=== PATIENT | female | born 1995 | race Caucasian/White ===

== ENCOUNTER 2019-11-11 15:39 | Emergency (ER) | payer OTHER, SELFPAY ==
[2019-11-11 15:47] VITALS: BP 127/64; PULSE 94; RESP 20; TEMP 37.2; O2SAT 99
--- NOTE | 2019-11-11 15:59 | ED.GENADULT ---
HPI - General Adult General Chief complaint: Nausea/Vomiting/Diarrhea Stated complaint: diarrhea Time Seen by Provider: 11/11/19 15:59 Source: patient Mode of arrival: ambulatory Limitations: no limitations History of Present Illness HPI narrative: 24-year-old female patient presents to the [facility] with complaints of diarrhea that started this morning. Patient states she has not had any fevers, vomiting or nausea. Patient denies or breast-feeding. Patient states that she did take some ibuprofen for symptoms today. Denies any abdominal pain. Patient states that she did call off from work today and needs a work note which is why she is here. Related Data Home Medications Medication Instructions Recorded Confirmed No Home Medications 11/11/19 11/11/19 Allergies Allergy/AdvReac Type Severity Reaction Status Date / Time No Known Allergies Allergy Verified 11/11/19 15:53 Review of Systems Review of Systems: Narrative: CONSTITUTIONAL: Denies fever, chills, or sweats. EYES: Denies visual changes, redness, or discharge. ENT: Denies rhinorrhea, congestion, sore throat, or otalgia. CARDIOVASCULAR: Denies chest pain, palpitations, or edema. RESPIRATORY: Denies cough or dyspnea. GASTROINTESTINAL: Denies abdominal pain, nausea, vomiting, positive diarrhea. GENITOURINARY: Denies dysuria or hematuria. SKIN: Denies rash or itching. MUSCULOSKELETAL: Denies back pain, joint pain, or myalgia. NEUROLOGIC: Denies headache, numbness, or weakness. PSYCHIATRIC: Denies anxiety or depression. PMFSH Past Medical History Medical History Bipolar 1 disorder Depression Social History Social History Smoking status: Never smoker Alcohol intake: current Substance use type: marijuana Comments At the time of my signature I agree with nursing past medical history, surgical, social, and family history. There is no relevant family history pertinent to the presenting complaint. Exam Narrative: Exam Narrative: GENERAL: Well-appearing, well-nourished, and in no acute distress. HEAD: Normocephalic, atraumatic. EYES: PERRLA and EOMI. ENT: Nares clear, no rhinorrhea or epistaxis. Mucous membranes moist. NECK: Supple. No lymphadenopathy CHEST: Clear to auscultation. No respiratory distress. HEART: Regular rate and rhythm. No murmur heard. Normal peripheral pulses. ABDOMEN: Soft, flat, nondistended. No guarding, rebound tenderness, or rigid. No pulsatilla masses. Hyperactive bowel sounds present in all four quadrants. No organomegaly. Negative Hurtado?s sign. No periumbicial tenderness. No Supra public tenderness or distension. Good femoral pulses bilaterally. No hernia noted. No scars or surface trauma. EXTREMITIES: Normal range of motion. No edema. SKIN: Warm, dry, no rash. NEURO: No focal deficits. Alert and oriented x3. Course Vital Signs Vital signs: Vital Signs Temperature 37.2 C 11/11/19 15:47 Pulse Rate 94 11/11/19 15:47 Respiratory Rate 11/11/19 15:47 Blood Pressure 127/64 11/11/19 15:47 Pulse Oximetry 99 11/11/19 15:47 Temperature 37.2 C 11/11/19 15:47 Pulse Rate 94 11/11/19 15:47 Respiratory Rate 11/11/19 15:47 Blood Pressure 127/64 11/11/19 15:47 Pulse Oximetry 99 11/11/19 15:47 Vital signs reviewed. Medical Decision Making Differential Diagnosis Differential Diagnosis: Differential diagnosis: Appendicitis, ovarian torsion, gallbladder disease, ovarian torsion, pancreatitis, lower lobe pneumonia,AAA, AMI or ACS, DKA, diverticulitis. Discussed with patient this is most likely some type of virus that is causing the diarrhea however since she does not have any bloody diarrhea, black tarry stools and it is not accompanied with abdominal pain vomiting or nausea I think that she should just continue to keep yourself hydrated and let this pass on its own. Discussed w
== END 2019-11-11 16:10 | disposition home or self-care (01) ==
PROVIDERS: Emergency Provider Nurse Practitioner Family; PCP Nurse Practitioner Family
DX: K52.9 Noninfective gastroenteritis and colitis, unspecified (principal)
CPT/HCPCS: 99211; G0463

== ENCOUNTER 2021-01-05 20:45 | Emergency (ER) | payer OTHER, SELFPAY ==
[2021-01-05 20:46] VITALS: BP 122/71; PULSE 103; RESP 20; TEMP 36.8; O2SAT 100
[2021-01-05 23:15] LABS: Basophils Percent Auto 0.4 % (0.2-1.2); Eosinophils Absolute Auto 0.2 K/mm3 (0-0.3); Eosinophils Percent Auto 1.8 % (0-4.4); Hematocrit 38.5 % (37.0-47.0); Hemoglobin 11.9 g/dL (12.0-15.0); Immature Granulocyte Absolute 0.05 K/mm3 (0.00-0.031); Immature Granulocyte Percent A 0.4 % (0-0.5); Lymphocytes Percent Auto 30.4 % (18.3-44.2); Mean Corpuscular HGB Conc 30.9 g/dl (32-36); Mean Corpuscular Hemoglobin 25.7 pg (26-34); Mean Corpuscular Volume 83.2 fl (80-100); Mean Platelet Volume 10.9 fl (7.4-10.4); Monocytes Percent Auto 8.8 % (2.6-8.5); Neutrophils Absolute Auto 6.5 K/mm3 (1.3-6.7); Neutrophils Percent Auto 58.2 % (45.5-73.1); Platelet Count Result 276 k/mm3 (150-375); Red Blood Count 4.63 M/mm3 (4.2-5.4); Red Cell Distribution Width 15.8 % (11.5-14.5); White Blood Count 11.2 K/mm3 (4.5-10.0)
[2021-01-05 23:22] LABS: Add Urine Microscopic? YES; Appearance Urine Cloudy (Clear); Bilirubin Urine Negative (Negative); Blood Urine Negative (Negative); Color Urine Yellow (Yellow); Glucose Urine UA Negative (Negative); Ketones Urine Negative (Negative); Leukocyte Esterase Ur Trace LEU/UL (Negative); Mucus Urine Rare /lpf; Nitrate Urine Negative (Negative); Protein Urine 1+ mg/dL (Negative); RBC Urine 0-2 /hpf (0-2); Specific Grav Ur 1.027 (1.001-1.035); Squamous Epithelial Cell Urine Many /hpf (Few); WBC Urine 0-3 /hpf
[2021-01-05 23:23] LABS: Anion Gap 6 mmol/L (8-16); Blood Urea Nitrogen 18 mg/dL (7-17); Calcium 9.2 mg/dL (8.4-10.2); Carbon Dioxide 27 mmol/L (22-30); Chloride 105 mmol/L (98-107); Estimated CRCL calculation 133 ml/min; Estimated Glomerular Filt Rate > 60; Glucose 109 mg/dL (65-105); Potassium 4.1 mmol/L (3.4-5.0); Sodium 138 mmol/L (137-145)
[2021-01-05 23:24] LABS: INR 0.8; Prothrombin Time 11.6 Seconds (11.1-14.7)
--- NOTE | 2021-01-05 23:34 | ED.ABDPAIN ---
HPI - Abdominal Pain General Chief Complaint: Abdominal Pain Stated Complaint: bowel movement problems Time Seen by Provider: 01/05/21 22:37 Source: patient Mode of arrival: ambulatory Limitations: no limitations History of Present Illness HPI narrative: 25-year-old female Presents complaining of constipation and having to dig in her rectum with a gloved hand in order to expedite bowel movements and some LLQ discomfort She reports having a large bloody stool after this She also has a cyst or lump in the perineal area which been present for a long time which occasionally becomes irritated painful or bleeds She has a OFFICE [facility] appointment later this month She does not have any abdominal distention no fever no vomiting No dysuria or frequency or hematuria She is taken a home test twice and they were both negative Related Data Home Medications Medication Instructions Recorded Confirmed No Home Medications 11/11/19 11/11/19 Allergies Allergy/AdvReac Type Severity Reaction Status Date / Time No Known Allergies Allergy Verified 01/05/21 22:35 Review of Systems Review of Systems: All systems reviewed & are unremarkable except as noted in HPI and below Constitutional: Constitutional: Reports no additional constitutional complaints, Denies chills, Denies fever(s) and Denies headache(s) ENT: Denies headache(s) Cardiovascular: Cardiovascular: Denies dyspnea Respiratory: Respiratory: Denies cough and Denies dyspnea Gastrointestinal: Gastrointestinal: Reports abdominal pain, Reports constipation, Denies diarrhea and Denies vomiting Genitourinary: Genitourinary: Denies hematuria, Denies urinary frequency, Reports genital lesions, Denies dysuria and Denies flank pain Musculoskeletal: Musculoskeletal: Denies deformity, Denies arthralgias, Denies joint swelling and Denies numbness Integumentary/Breasts: Skin/Breast: Denies wounds Psychiatric: Psychiatric: Reports no additional psychiatric complaints [facility] Past Medical History Medical History (Updated 01/05/21 @ 23:42 by Cash Vidal MD) Bipolar 1 disorder Depression Social History Social History Smoking status: Never smoker Alcohol intake: current Substance use type: marijuana Gender identity (if verbalized by the patient): Female Exam Const: General: cooperative, no acute distress and alert Orientation/consciousness: patient oriented x3 (alert) HENMT: Head: normal to inspection, normocephalic and atraumatic Ears: external ears normal General nose exam: no epistaxis Eyes: Conjunctivae: conjunctivae normal EOM: EOMs intact bilaterally Neck: Neck: normal visual inspection, supple and no JVD Resp: Effort & Inspection: normal respiratory effort and not labored Auscultation: other (BS =) GI: Inspection: non-distended GI Palp: Yes Soft to palpation, No Tenderness to palpation present (GI), No Guarding due to palpation present (GI) and No Rebound tenderness present Other: Brown, guaiac-negative stool, no hemorrhoids, no hematochezia : Other: Small cystic irritated area on the perineum on the left side which is slightly bleeding but not draining any purulence Skin: General skin exam: normal color and no rashes or lesions noted Neuro: General: patient oriented x3 (alert) Speech: normal speech Psych: Affect: normal affect Course Vital Signs Vital signs: Vital Signs Temperature 36.8 C 01/05/21 20:46 Pulse Rate 103 H 01/05/21 20:46 Respiratory Rate 20 01/05/21 20:46 Blood Pressure 122/71 01/05/21 20:46 Pulse Oximetry 100 01/05/21 20:46 Temperature 36.8 C 01/05/21 20:46 Pulse Rate 103 H 01/05/21 20:46 Respiratory Rate 20 01/05/21 20:46 Blood Pressure 122/71 01/05/21 20:46 Pulse Oximetry 100 01/05/21 20:46 MDM - Abdominal Pain Lab Data Result diagrams: 01/05/21 23:03 01/05/21 23:03 Labs: Lab Resu
[2021-01-05 23:40] LABS: Beta HCG Quantitative < 2.39 mIU/ML
[2021-01-05] MEDS: MAGNESIUM CITRATE 300 ML BTL PO (23:42)
[2021-01-05] MEDS: polyethylene glycoL 3350 17 GM POWD.PACK PO (23:45)
[2021-01-05 23:51] VITALS: BP 120/63; PULSE 93; RESP 21; O2SAT 100
== END 2021-01-05 23:53 | disposition home or self-care (01) ==
PROVIDERS: Emergency Provider Emergency Medicine; PCP Nurse Practitioner Family
DX: K59.00 Constipation, unspecified (principal)
CPT/HCPCS: 36415; 80048; 81001; 84702; 85025; 85610; 99283; A9270

== ENCOUNTER 2021-02-14 16:27 | Emergency (ER) | payer OTHER, SELFPAY ==
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
[2021-02-14 17:20] VITALS: BP 113/89; PULSE 70; RESP 18; TEMP 36.7; O2SAT 100
[2021-02-14 19:23] VITALS: BP 114/68; PULSE 80; RESP 18; TEMP 36.6; O2SAT 100
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
[2021-02-14] MEDS: KETOROLAC (*BKC) 60 MG/2 ML VIAL IM (20:36)
--- NOTE | 2021-02-14 20:48 | PC.NURSE ---
pt refused tetnus shot. Pt education given on risks. pt denied the need for the shot.
[2021-02-14 20:50] VITALS: BP 116/78; PULSE 78; RESP 20; O2SAT 100
== END 2021-02-14 20:51 | disposition home or self-care (01) ==
PROVIDERS: Emergency Provider Nurse Practitioner; PCP Nurse Practitioner Family
DX: S93.402A Sprain of unspecified ligament of left ankle, initial encounter (principal); S96.912A Strain of unspecified muscle and tendon at ankle and foot level, left foot, initial encounter; S80.812A Abrasion, left lower leg, initial encounter; V28.4XXA Motorcycle driver injured in noncollision transport accident in traffic accident, initial encounter
CPT/HCPCS: 73590; 96372; 99283; J1885

== ENCOUNTER 2021-03-12 19:06 | Emergency (ER) | payer OTHER, SELFPAY ==
--- NOTE | ~2021-03-12 | XR_ITS ---
XR ankle RT min 3V DATE: 03/12/2021 19:27 INDICATION: Lateral ankle pain and swelling, bruising TECHNIQUE: 4 views COMPARISON: None FINDINGS: No fracture or dislocation of the ankle or disruption of the ankle mortise. Mild posterior calcaneal enthesopathy. IMPRESSION: No fracture or dislocation of the ankle Reviewed, dictated and finalized at location A.
[2021-03-12 19:29] VITALS: BP 130/82; PULSE 104; RESP 18; TEMP 36.5; O2SAT 100
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
[2021-03-12 21:39] VITALS: BP 118/72; PULSE 78; RESP 16; TEMP 36.4; O2SAT 100
[2021-03-12] MEDS: HYDROcodone/acetaminophen (*CRX) 5-325 MG TABLET 1 TAB PO (21:39)
== END 2021-03-12 21:40 | disposition home or self-care (01) ==
PROVIDERS: Emergency Provider Emergency Medicine; PCP Nurse Practitioner Family
DX: S93.401A Sprain of unspecified ligament of right ankle, initial encounter (principal); S96.911A Strain of unspecified muscle and tendon at ankle and foot level, right foot, initial encounter; X50.9XXA Other and unspecified overexertion or strenuous movements or postures, initial encounter
CPT/HCPCS: 73610; 99283; A9270

== ENCOUNTER 2021-03-27 17:33 | Emergency (ER) | payer OTHER, SELFPAY ==
--- NOTE | 2021-03-27 17:38 | ED.EAR ---
HPI - Ear Problem General Chief complaint: Ear Stated complaint: Pain and blood in right Ear Time Seen by Provider: 03/27/21 18:15 Source: patient and RN notes reviewed Mode of arrival: ambulatory Limitations: no limitations History of Present Illness HPI Narrative: 25-year-old female presents with concern for bleeding in the right ear after using a Q-tip. Reports this morning she was using a Q-tip when she noticed a small amount of blood on the Q-tip. She reports slight muffled hearing. She denies any current pain, current bleeding. Denies any current drainage from the ear. MD Complaint: ear pain Related Data Allergies Allergy/AdvReac Type Severity Reaction Status Date / Time No Known Allergies Allergy Verified 01/05/21 22:35 Review of Systems Review of Systems: Narrative: CONSTITUTIONAL: Denies malaise, chills, sweats, or fever. ENT: Reports mild bleeding from the right ear, decreased hearing CARDIOVASCULAR: Denies chest pain, palpitations, or edema. RESPIRATORY: Denies cough or dyspnea. SKIN: Denies rash or itching. NEUROLOGIC: Denies headache. All systems reviewed & are unremarkable except as noted in HPI and below PMFSH Past Medical History Medical History (Updated 03/27/21 @ 18:25 by Ny Sauceda NP) Bipolar 1 disorder Depression Social History Social History Smoking status: Never smoker Alcohol intake: current Substance use type: marijuana Gender identity (if verbalized by the patient): Female Comments At time of signature, agree with nursing past medical, surgical, social and family history. There is no relevant family history pertinent to the presenting complaint Exam Narrative: Exam Narrative: GENERAL: Well-appearing, well-nourished, and in no acute distress. HEAD: Normocephalic, atraumatic. EYES: PERRLA, conjunctivae clear ENT: Nares clear, turbinates pink, no rhinorrhea or epistaxis. Mucous membranes moist. TM not visible due to excess cerumen bilaterally; no tragal tenderness. Small proximal abrasion noted in the right auditory canal without current bleeding, no canal erythema or edema. NECK: Supple. CHEST: No respiratory distress. Speaks in full sentences. HEART: Regular rate and rhythm. SKIN: Warm, dry, no rash. NEURO: Alert and oriented x3. PSYCH: Normal mood and affect Course Course Emergency Course: Discussed with patient at home treatment for excess cerumen. Patient is aware of diagnosis, understands and agrees to treatment plan. Anticipatory guidance given. Patient agrees to follow-up as directed and is aware of reasons to seek care at the emergency department. Portions of this record may have been created with voice recognition software Vital Signs Vital signs: Vital Signs Temperature 98.4 F 03/27/21 17:56 Pulse Rate 105 H 03/27/21 17:56 Respiratory Rate 16 03/27/21 17:56 Blood Pressure 126/74 03/27/21 17:56 Pulse Oximetry 100 03/27/21 17:56 Temperature 98.4 F 03/27/21 17:56 Pulse Rate 105 H 03/27/21 17:56 Respiratory Rate 16 03/27/21 17:56 Blood Pressure 126/74 03/27/21 17:56 Pulse Oximetry 100 03/27/21 17:56 Reviewed. Medical Decision Making MDM Narrative Medical decision making narrative: Exam findings show no acute concerns or changes; patient is non-toxic appearing and is in no distress. Patient is appropriate for outpatient treatment and follow-up. Differential Diagnosis Differential Diagnosis: Otitis media, otitis externa, ruptured tympanic membrane, foreign body Vital Signs Vital Signs: Vital Signs Temperature 98.4 F 03/27/21 17:56 Pulse Rate 105 H 03/27/21 17:56 Respiratory Rate 16 03/27/21 17:56 Blood Pressure 126/74 03/27/21 17:56 Pulse Oximetry 100 03/27/21 17:56 Temperature 98.4 F 03/27/21 17:56 Pulse Rate 105 H 03/27/21 17:56 Respiratory Rate 16 03/27/21 17:56 Blood Pressure 126/74 03/27/21 17:56 Pulse Oximetry 100
[2021-03-27 17:56] VITALS: BP 126/74; PULSE 105; RESP 16; TEMP 36.9; O2SAT 100
== END 2021-03-27 18:30 | disposition home or self-care (01) ==
PROVIDERS: Emergency Provider Nurse Practitioner; PCP Internal Medicine
DX: S00.411A Abrasion of right ear, initial encounter (principal); X58.XXXA Exposure to other specified factors, initial encounter
CPT/HCPCS: 99212; G0463

== ENCOUNTER 2021-06-16 17:37 | Emergency (ER) | payer OTHER, SELFPAY ==
--- NOTE | 2021-06-16 17:40 | ED.URI ---
HPI - URI/Sore Throat General Chief Complaint: Upper Respiratory Infection Stated Complaint: Flu SX Time Seen by Provider: 06/16/21 17:40 Source: patient and RN notes reviewed History of Present Illness HPI Narrative: Patient is a 26-year-old female who presents the urgent care with complaints of sore throat, fatigue, nausea, body aches, cough, runny nose, chills, ear pain and headache. Patient states her symptoms started a couple days ago and worsened within the last 24 hours. Patient states that she works at [employer] and needs a work note . Patient states she has had the Materna vaccine. Has been using DayQuil and NyQuil for her symptoms. Patient has not obtained a Covid test. No other acute complaints. No acute distress noted. Patient read the plan of care. Some parts of this dictation were generated by voice recognition software and may contain typographical and/or grammatical inaccuracies. Related Data Home Medications Medication Instructions Recorded Confirmed etonogestrel [Nexplanon] 1 implant SUBDERMAL ONCE 06/16/21 06/16/21 gabapentin 300 mg PO HS 06/16/21 06/16/21 Allergies Allergy/AdvReac Type Severity Reaction Status Date / Time No Known Allergies Allergy Verified 06/16/21 17:59 Review of Systems Review of Systems: CONSTITUTIONAL: Reports of chills and fatigue EYES: Denies visual changes, redness, or discharge. ENT: Reports of rhinorrhea, sore throat, right otalgia CARDIOVASCULAR: Denies chest pain, palpitations, or edema. RESPIRATORY: Denies cough or dyspnea. GASTROINTESTINAL: Reports of intermittent nausea without vomiting, abdominal pain or diarrhea GENITOURINARY: Denies dysuria or hematuria. SKIN: Denies rash or itching. MUSCULOSKELETAL: Denies back pain, joint pain. Reports of body aches NEUROLOGIC: Denies headache, numbness, or weakness. All other systems reviewed are negative, except as documented in HPI. [facility] Past Medical History Medical History (Updated 06/16/21 @ 18:15 by BENJAMIN Weeks) Bipolar 1 disorder Depression Social History Social History Smoking status: Never smoker Alcohol intake: current Alcohol use details: socially Substance use type: marijuana Gender identity (if verbalized by the patient): Female Comments At the time of my signature, I reviewed and agree with the nursing past medical, surgical, social, and family history. There is no relevant family history pertinent to the patient complaint. Exam Narrative: GENERAL: This is a well-nourished, well-developed patient, in no apparent distress. HEAD: normocephalic, atraumatic. EYES: PERRL. Sclera clear/white. Vision is grossly intact. EARS: External ears normal, auditory canals clear and without drainage, bilateral cerumen noted, TMs normal without perforation. Hearing grossly intact. NOSE: External nose normal with no obvious nasal discharge, bilateral erythemic nares with clear rhinorrhea THROAT: Mucous membranes moist, mild erythema noted posterior oropharynx with moderate postnasal drainage NECK: Neck supple, non-tender without lymphadenopathy CARDIOVASCULAR: Regular rate and rhythm without murmurs, gallops, or rubs. RESPIRATORY: Clear to auscultation. Breath sounds equal bilaterally. No wheezes, rales, or rhonchi. GASTROINTESTINAL: Abdomen soft, non-tender, nondistended. Bowel sounds are active. SKIN: warm, intact with no suspicious lesions or rash, good texture and turgor. NEURO: awake, alert, and oriented to person, place and time. There were no obvious focal neurologic abnormalities. EXTREMITIES: No clubbing, cyanosis, or edema. Course Vital Signs Vital signs: Vital Signs Temperature 97.6 F 06/16/21 17:43 Pulse Rate 90 06/16/21 17:43 Respiratory Rate 20 06/16/21 17:43 Blood Pressure 132/75 06/16/21 17:43 Pulse Oximetry 100 06/16/21 17:43 Temperature 97.6 F 06/16/21 17:43 Pulse Rate 90 06/16/21 1
[2021-06-16 17:43] VITALS: BP 132/75; PULSE 90; RESP 20; TEMP 36.4; O2SAT 100
== END 2021-06-16 18:17 | disposition home or self-care (01) ==
PROVIDERS: Emergency Provider Nurse Practitioner Family
DX: J02.9 Acute pharyngitis, unspecified (principal); J06.9 Acute upper respiratory infection, unspecified
CPT/HCPCS: 87081; 87880; 99213; G0463

== ENCOUNTER 2021-08-31 10:08 | Emergency (ER) | payer OTHER, SELFPAY ==
--- NOTE | 2021-08-31 10:10 | ED.URI ---
HPI - URI/Sore Throat General Chief Complaint: Upper Respiratory Infection Stated Complaint: Sore Throat Time Seen by Provider: 08/31/21 10:11 Source: patient and RN notes reviewed History of Present Illness HPI Narrative: Patient is a 26-year-old female who presents the urgent care with complaints of a sore throat that started yesterday and worsened this morning. Patient states that she is have a lot of swelling in the right side of her neck and pain shooting to the right ear. Patient denies of any known fevers, nausea or vomiting. States that she has taken Tylenol one time. No other acute complaints. No acute distress noted. Patient normal plan of care. Some parts of this dictation were generated by voice recognition software and may contain typographical and/or grammatical inaccuracies. Related Data Home Medications Medication Instructions Recorded Confirmed etonogestrel [Nexplanon] 1 implant SUBDERMAL ONCE 06/16/21 08/31/21 gabapentin 300 mg PO HS 06/16/21 08/31/21 Allergies Allergy/AdvReac Type Severity Reaction Status Date / Time No Known Allergies Allergy Verified 08/31/21 10:28 Review of Systems Review of Systems: CONSTITUTIONAL: Denies fever, chills, or sweats. EYES: Denies visual changes, redness, or discharge. ENT: Denies rhinorrhea, congestion,. Reports of sore throat and right otalgia CARDIOVASCULAR: Denies chest pain, palpitations, or edema. RESPIRATORY: Denies cough or dyspnea. GASTROINTESTINAL: Denies abdominal pain, nausea, vomiting, or diarrhea. GENITOURINARY: Denies dysuria or hematuria. SKIN: Denies rash or itching. MUSCULOSKELETAL: Denies back pain, joint pain, or myalgia. NEUROLOGIC: Denies headache, numbness, or weakness. All other systems reviewed are negative, except as documented in HPI. [facility] Past Medical History Medical History (Updated 08/31/21 @ 10:35 by BENJAMIN Weeks) Bipolar 1 disorder Depression Social History Social History Smoking status: Never smoker Alcohol intake: current Alcohol use details: socially Substance use type: marijuana Gender identity (if verbalized by the patient): Female Comments At the time of my signature, I reviewed and agree with the nursing past medical, surgical, social, and family history. There is no relevant family history pertinent to the patient complaint. Exam Narrative: GENERAL: This is a well-nourished, well-developed patient, in no apparent distress. HEAD: normocephalic, atraumatic. EYES: PERRL. Sclera clear/white. Vision is grossly intact. EARS: External ears normal, auditory canals clear and without drainage, cerumen without impaction bilaterally, TMs normal without perforation. Hearing grossly intact. NOSE: External nose normal with no obvious nasal discharge, nares without redness, no rhinorrhea. THROAT: Mucous membranes moist. Moderate erythema noted posterior oropharynx with mild to moderate bilateral tonsillar edema/erythema and moderate postnasal drainage NECK: Neck supple, moderate tenderness to right submandibular lymphadenopathy CARDIOVASCULAR: Regular rate and rhythm without murmurs, gallops, or rubs. RESPIRATORY: Clear to auscultation. Breath sounds equal bilaterally. No wheezes, rales, or rhonchi. SKIN: warm, intact with no suspicious lesions or rash, good texture and turgor. NEURO: awake, alert, and oriented to person, place and time. There were no obvious focal neurologic abnormalities. EXTREMITIES: No clubbing, cyanosis, or edema. Course Vital Signs Vital signs: Vital Signs Temperature 99.8 F H 08/31/21 10:16 Pulse Rate 110 H 08/31/21 10:16 Respiratory Rate 16 08/31/21 10:16 Blood Pressure 129/87 08/31/21 10:16 Pulse Oximetry 100 08/31/21 10:16 Temperature 99.8 F H 08/31/21 10:16 Pulse Rate 110 H 08/31/21 10:16 Respiratory Rate 16 08/31/21 10:16 Blood Pressure 129/87 08/31/21 10:16 Pulse Oximetry 100 12/0
[2021-08-31 10:16] VITALS: BP 129/87; PULSE 110; RESP 16; TEMP 37.7; O2SAT 100
== END 2021-08-31 10:35 | disposition home or self-care (01) ==
PROVIDERS: Emergency Provider Nurse Practitioner Family
DX: J02.0 Streptococcal pharyngitis (principal)
CPT/HCPCS: 87880; 99213; G0463

== ENCOUNTER 2022-06-10 19:07 | Emergency (ER) | payer OTHER, SELFPAY ==
[2022-06-10 19:12] VITALS: BP 120/78; PULSE 112; RESP 16; TEMP 36.4; O2SAT 100
--- NOTE | 2022-06-10 19:45 | ED.SKABFB ---
HPI - Skin/Abscess/Foreign Bdy General Chief complaint: Wound/Laceration Stated complaint: wounds x1wk Time Seen by Provider: 06/10/22 19:39 History of Present Illness HPI narrative: 27-year-old female presents the emergency room for evaluation of multiple wounds. Patient states that she began experiencing a draining ulceration to her umbilical area 3 days ago. Patient states that she noticed a another open wound to her left and 3 to her right scapula. Patient states that wounds of been draining purulent drainage. Denies fever Related Data Home Medications Medication Instructions Recorded Confirmed etonogestrel 68 mg subdermal 1 implant subdermal ONCE 06/16/21 08/31/21 implant (Nexplanon) gabapentin 300 mg capsule 300 mg PO HS 06/16/21 08/31/21 Allergies Allergy/AdvReac Type Severity Reaction Status Date / Time No Known Allergies Allergy Verified 06/10/22 19:16 Review of Systems Review of Systems: CONSTITUTIONAL: Denies fever, chills, or sweats. EYES: Denies visual changes, redness, or discharge. ENT: Denies rhinorrhea, congestion, sore throat, or otalgia. CARDIOVASCULAR: Denies chest pain, palpitations, or edema. RESPIRATORY: Denies cough or dyspnea. GASTROINTESTINAL: Denies abdominal pain, nausea, vomiting, or diarrhea. GENITOURINARY: Denies dysuria or hematuria. SKIN: Reports wounds to back, umbilicus, left MUSCULOSKELETAL: Denies back pain, joint pain, or myalgia. NEUROLOGIC: Denies headache, numbness, dizziness, or weakness. PSYCHIATRIC: Denies anxiety or depression. [facility] Past Medical History Medical History (Updated 06/10/22 @ 19:49 by Roberto Schultz APRN) Bipolar 1 disorder Depression Social History Social History Smoking status: Never smoker Alcohol intake: current Alcohol use details: socially Substance use type: marijuana Gender identity (if verbalized by the patient): Female Exam Narrative: GENERAL: Well-appearing, well-nourished, no physical limitations, and in no acute distress. HEAD: Normocephalic, atraumatic. EYES: Conjunctivae normal, PERRLA and EOMI. CHEST: Clear to auscultation. No respiratory distress. No wheezes rales or rhonchi. No tenderness. HEART: Regular rate and rhythm. No murmur heard. Normal peripheral pulses. EXTREMITIES: Normal range of motion. No edema. No clubbing or cyanosis SKIN: Small ulcer with surrounding erythema noted to umbilicus, left thumb, and x3 to right scapula. Purulent drainage noted to right scapula NEURO: No focal deficits. Alert and oriented x3. MAEW. CN's II-XI intact bilaterally, normal gait PSYCH: Cooperative. Normal mood and affect. Course Vital Signs Vital signs: Vital Signs Temperature 36.4 C L 06/10/22 19:12 Pulse Rate 112 H 06/10/22 19:12 Respiratory Rate 16 06/10/22 19:12 Blood Pressure 120/78 06/10/22 19:12 Pulse Oximetry 100 06/10/22 19:12 Oxygen Delivery Room Air 06/10/22 19:12 Temperature 36.4 C L 06/10/22 19:12 Pulse Rate 112 H 06/10/22 19:12 Respiratory Rate 16 06/10/22 19:12 Blood Pressure 120/78 06/10/22 19:12 Pulse Oximetry 100 06/10/22 19:12 Oxygen Delivery Room Air 06/10/22 19:12 Discharge Plan Discharge Clinical Impression: Cellulitis, Abscess of skin or subcutaneous tissue Patient Disposition: Home, Self-Care Condition: Stable Instructions: Antibiotic Form, Abscess (ED) Prescriptions: New clindamycin HCl 300 mg capsule 300 mg PO Q8H 10 Days Qty: 30 0RF No Action gabapentin 300 mg capsule 300 mg PO HS Nexplanon 68 mg Implant 1 implant SUBDERMAL ONCE methylprednisolone [Medrol (Viraj)] 4 mg tablets,dose pack See Rx Instructions .ROUTE .COMPLEX Qty: 21 0RF Rx Instructions: orally per package directions amoxicillin 500 mg tablet 500 mg PO Q12H Qty: 20 0RF Follow-up/Referrals: PHYSICIAN NOT ON STAFF,NONSTAFF [Primary Care Provider] - Time of
== END 2022-06-10 20:00 | disposition home or self-care (01) ==
LOC: ANHED 19:55
PROVIDERS: Emergency Provider Nurse Practitioner Family
DX: L03.316 Cellulitis of umbilicus (principal); L03.012 Cellulitis of left finger; L03.113 Cellulitis of right upper limb; L02.216 Cutaneous abscess of umbilicus; L02.512 Cutaneous abscess of left hand; L02.413 Cutaneous abscess of right upper limb
CPT/HCPCS: 87070; 87077; 87205; 99283

== ENCOUNTER 2023-02-18 14:20 | Emergency (ER) | payer OTHER, SELFPAY ==
[2023-02-18 14:26] VITALS: BP 147/79; PULSE 105; RESP 16; TEMP 36.6; O2SAT 100
--- NOTE | 2023-02-18 14:48 | ED.GENADULT ---
HPI - General Adult General Chief complaint: Urogenital-Female Stated complaint: STD Exposure/Eye Problem Time Seen by Provider: 02/18/23 15:12 Source: patient, RN notes reviewed and old records reviewed Mode of arrival: ambulatory Limitations: no limitations History of Present Illness HPI narrative: 27 year old female who presents to express care with complaints of right eye itching and drainage which started today and complaints of 2 week duration of cough, congestion, sinus drainage with no known temperature noted. Patient reports also that she has had for the past 3 days ago burning in her vaginal area with one single lesion vaginal area from herpes flare and needs to have medications prescribed, this is first time she has flared since diagnosed in July. Patient states also some increased white discharge vaginally thinks might be yeast infection. Patient has numerous red irritated lesions on arms and some to face is very anxious appearing, admits to meth use which she is shooting, states she shot up today, states [facility] to [facility]. Discussed with patient that she need comprehensive STD testing including HIV and Hepatitis since she has been shooting meth with information given about STD comprehensive testing. Information about [facility] services also given. MD complaint: herpes flare, conjunctivitis right eye, URI and cough Onset (ago): day(s) (3) Treatments prior to arrival: none Related Data Home Medications Medication Instructions Recorded Confirmed etonogestrel 68 mg subdermal 1 implant subdermal ONCE 06/16/21 02/18/23 implant (Nexplanon) Allergies Allergy/AdvReac Type Severity Reaction Status Date / Time No Known Allergies Allergy Verified 02/18/23 14:58 Review of Systems Review of Systems: CONSTITUTIONAL: Denies fever, chills, or sweats. EYES: Denies visual changes. Reports redness,, irritation, discharge from right eye, reports sinus congestion and drainage for 2 weeks ENT: Reports rhinorrhea, congestion,no sore throat, or otalgia. CARDIOVASCULAR: Denies chest pain, palpitations, or edema. RESPIRATORY: Positive for cough denies dyspnea. SKIN: Denies rash or itching. Positive for pain and itching lesion vaginally herpes flare NEUROLOGIC: Denies headache PMFSH Past Medical History Medical History (Updated 02/20/23 @ 18:47 by Regina Sampson NP) Asthma Bipolar 1 disorder Depression Herpes genitalis Social History Social History (Updated 02/20/23 @ 18:22 by Regina Sampson NP) Smoking status: Never smoker Alcohol intake: current Alcohol use details: socially Substance use: current Substance use type: marijuana and methamphetamine Last use: shot up methamphetamine today Gender identity (if verbalized by the patient): Female Comments At time of signature, agree with nursing past medical, surgical, social and family history. There is no relevant family history pertinent to the presenting complaint Exam Narrative: GENERAL: ill-appearing, fair-nourished, and unkept, no acute distress. HEAD: Normocephalic, atraumatic. EYES: PERRLA and EOMI. Upper and lower eyelids unremarkable. No periorbital cellulitis noted. Sclera and conjunctivae injected right eye, no acute pain greenish drainage ENT: Nares clear, clear to light yellow tinged rhinorrhea NO epistaxis. Mucous membranes moist.TM's normal with good light reflex, throat pink with no NECK: Supple. no lymphadenopathy CHEST: Clear to auscultation. No respiratory distress.cough noted HEART: Regular rate and rhythm. No murmur heard. Normal peripheral pulses. SKIN: Warm, dry, no rash.herpetic flare single vaginal lesion with pain and itching increased vaginal discharge thinks yeast. NEURO: No focal deficits. Alert and oriented x3. anxious and restless Course Course Emergency Course: Patient is aware of diagnosis, understands and agrees to treatment plan. Anticipatory guidance given. Patient agrees t
== END 2023-02-18 15:49 | disposition home or self-care (01) ==
PROVIDERS: Emergency Provider Registered Nurse
DX: A60.00 Herpesviral infection of urogenital system, unspecified (principal); J06.9 Acute upper respiratory infection, unspecified; H10.9 Unspecified conjunctivitis; J45.909 Unspecified asthma, uncomplicated
CPT/HCPCS: 99213; G0463

== ENCOUNTER 2023-12-14 10:48 | Emergency (ER) | payer OTHER, SELFPAY ==
[2023-12-14 10:56] VITALS: BP 142/92; PULSE 136; RESP 20; TEMP 36.6; O2SAT 100
--- NOTE | 2023-12-14 11:30 | ED.GENADULT ---
HPI - General Adult General Chief complaint: Urogenital-Female Stated complaint: Herpes Breakout Source: patient Mode of arrival: ambulatory Limitations: no limitations History of Present Illness HPI narrative: Patient presents requesting treatment for herpes. She indicates she has had a herpes outbreak for last 5 days. She also has some cream-colored vaginal discharge. She denies any fever, chills, nausea, vomiting, abdominal pain, low back pain. LMP approximately 2 months ago. History of the regular menstruation. She has a Nexplanon but it is . She is not sure whether her male sex partner is symptomatic. Related Data Home Medications Medication Instructions Recorded Confirmed etonogestrel 68 mg subdermal 1 implant subdermal ONCE 06/16/21 12/14/23 implant (Nexplanon) Allergies Allergy/AdvReac Type Severity Reaction Status Date / Time No Known Allergies Allergy Verified 12/14/23 11:28 Review of Systems Review of Systems: CONSTITUTIONAL: Denies fever, chills, or sweats. EYES: Denies visual changes, redness, or discharge. ENT: Denies rhinorrhea, congestion, sore throat, or otalgia. CARDIOVASCULAR: Denies chest pain, palpitations, or edema. RESPIRATORY: Denies cough or dyspnea. GASTROINTESTINAL: Denies abdominal pain, nausea, vomiting, or diarrhea. GENITOURINARY: Reports white vaginal discharge. Denies vaginal bleeding. Denies dysuria or hematuria. SKIN: Reports painful vaginal lesions. MUSCULOSKELETAL: Denies back pain, joint pain, or myalgia. NEUROLOGIC: Denies headache, numbness, dizziness, or weakness. PSYCHIATRIC: Denies anxiety or depression. [facility] Past Medical History Medical History Asthma Bipolar 1 disorder Depression Herpes genitalis Surgical History Surgical History No pertinent past surgical history Family History Family History Mother Family history non-contributory Social History Social History Smoking status: Never smoker Alcohol intake: current Alcohol use details: socially Substance use: current Substance use type: marijuana and methamphetamine Last use: shot up methamphetamine today Gender identity (if verbalized by the patient): Female Sexual Orientation (if Verbalized by the Patient): Straight or Heterosexual Spiritual care concerns: No Exam Narrative: GENERAL: Well-appearing, well-nourished, and in no acute distress. HEAD: Normocephalic, atraumatic. EYES: PERRLA and EOMI. ENT: Nares clear, no rhinorrhea or epistaxis. Mucous membranes moist. Oropharynx without tonsillar hypertrophy exudate or other lesions. Bilateral TMs pearly huynh nonbulging NECK: Supple. No adenopathy or masses. No carotid bruits or JVD CHEST: Clear to auscultation. No respiratory distress. No wheezes rales or rhonchi HEART: Regular rate and rhythm. No murmur heard. Normal peripheral pulses. ABDOMEN: Soft, nontender, nondistended, normal active bowel sounds. EXTREMITIES: Normal range of motion. No edema. GENITAL: There is several ulcerative lesions noted to the right labia. There is no adnexal tenderness or cervical motion tenderness. Cervix is friable. There is a small amount of milky white discharge noted vaginal vault. SKIN: Warm, dry, no rash. NEURO: No focal deficits. Alert and oriented x3. PSYCH: Normal mood and affect. Course Course Emergency Course: This is a 28-year-old female who presented requesting treatment for herpes simplex. Will treat with Valtrex. Nitrate positive urine, for which we will treat with Macrobid. Send urine for culture. Swabs obtained for gonorrhea chlamydia Trichomonas, BV. Advised on safer sex practices. Remain sexually abstinent for now. Follow-up with primary provider. Go to the ER
[2023-12-14 15:16] LABS: Trichomonas Vag PCR NOT DETECTED (NOT DETECTE)
[2023-12-14 15:43] LABS: Chlamydia trachomatis NOT DETECTED (NOT DETECTE); Neisseria gonorrhoeae PCR NOT DETECTED (NOT DETECTE)
[2023-12-17 07:06] LABS: Bacterial Vaginosis Positive (Negative)
== END 2023-12-14 12:00 | disposition home or self-care (01) ==
PROVIDERS: Emergency Provider Nurse Practitioner
DX: A60.00 Herpesviral infection of urogenital system, unspecified (principal); N39.0 Urinary tract infection, site not specified; B96.20 Unspecified Escherichia coli [E. coli] as the cause of diseases classified elsewhere; N76.0 Acute vaginitis; J45.909 Unspecified asthma, uncomplicated
CPT/HCPCS: 81003; 81025; 81513; 87077; 87086; 87088; 87186; 87491; 87591; 87661; 99214; G0463

== ENCOUNTER 2025-01-30 18:29 | Emergency (ER) | payer OTHER, SELFPAY ==
--- OUTSIDE RECORDS SUMMARY | 2025-01-30 18:31 | XMS_ITS | Clinical Summary ---
Author Organization [facility] Address [address] [facility], [place] [address] Phone Care Team Providers Care Discharge Specialist Name Role Phone Provider, None Primary Care Provider Unavailabl e Allergies No known active allergies Medications MONONESSA 0.25-35 MG-MCG Tablet 8 Active miconazole (CRITIC-AID) 2 % OintmentIndicat ions:Tinea pedis of left foot APPLY TO AFFECTED AREAS TWICE DAILY 1 Tube 2 8 Active Additional Information Patient not taking.Reported on 07/08/2020 ibuprofen (MOTRIN) 800 MG Tablet Take 1 Tab by mouth every 8 hours. 30 Tab 0 Active metoclopramide (REGLAN) 10 MG Tablet Take 1 Tab by mouth 4 times daily as needed for Nausea - 1st line or Vomiting. 10 Tab 0 Active HYDROcodone-harika taminophen (NORCO) 5-325 MG Tablet Take 1 Tab by mouth every 4 hours as needed for Moderate or more severe pain. 20 Tab 0 Active cyclobenzaprine (FLEXERIL) 10 MG Tablet Take 1 Tablet by mouth 3 times daily as needed for Muscle spasms. 30 Tablet 1 Active methylPREDNISol one (Medrol) 4 MG Tablet Therapy PackIndications :Carpal tunnel syndrome on both sides Use as per instructions on package. 21 Tablet Active Active Problems Problem Noted Date Diagnosed Date Tinea pedis of left foot 10/29/2017 Ingrown left greater toenail 10/15/2017 Pain of left great toe 10/15/2017 Immunizations Immunization Administration Dates Next Due TDAP Vaccine 04/01/2024 Family History Medical History Relation Name Comments Hypertension Paternal Uncle Relation Name Status Comments Paternal Uncle Social History Tobacco Use Types Packs/Day Years Used Date Smoking Tobacco: Every Day Cigarettes 1 14.4 Started: 09/23/2010 Smokeless Tobacco: Never Tobacco Cessation:Ready to Q uit: No Alcohol Use Standard Drinks/Week Comments Yes 0 (1 standard drink = 0.6 oz pur e alcohol) rarely Comments No Sex and Gender Information Value Date Recorded Sex Assigned at Female 09/04/2023 7:52 AM PROSTHODONTIST Legal Sex Female 9:40 PM CDT Gender Identity Female 09/04/2023 7:52 AM PROSTHODONTIST Sexual Orientation Straight 09/04/2023 7: 52 AM PROSTHODONTIST Last Filed Vital Signs Vital Sign Reading Time Taken Comments Blood Pressure 126/73 05/03/2024 9:30 PM CDT Pulse 73 05/03/2024 9:45 PM CDT Temperature 36.4 C (97.6 F) 05/03/2024 6:03 PM CDT Respiratory Rate 18 05/03/2024 6:03 PM CDT Oxygen Saturation 100% 05/03/2024 9:45 PM CDT Inhaled Oxygen Concentration - - Weight 72.6 kg (160 lb) 05/03/2024 6:03 PM CDT Height 160 cm (5' 3 ) 05/03/2024 6:03 PM CDT Body Mass Index 28.34 05/03/2024 6:03 PM CDT Plan of Treatment Health Maintenance Due Date Last Done Comments Hepatitis C Virus (HCV) Screening 1993 Pneumococcal Immunization Combined (1 of 2 - PCV) 2012 Pap Smear 2014 Cervical Cancer Screening (CCS) 2023 HPV/Cotest 2023 Influenza Immunization (#1) 05/24/202407/24, 08/28/2017, 07/04/2016, Additional history exists SARS-COV-2 Immunization ( season) 2024 02/19/2021, 01/22/2021 Td Immunization Every 10 Years (Adults With 1 Tdap) 04/01/2034 04/01/2024, 01/20/2019, 07/04/2016, Additional history exists Respiratory Syncytial Virus (RSV) Immunization (Adult) (1 - 1-dose 75+ series) 2068 Hepatitis B Immunization Completed 994, 1993, 1993 Human Papillomavirus (HPV) Immunization Discontinued 05/24/2015, 04/14/2008 DTaP/Tdap/Td Immunization Discontinued 2023, 01/20/2019, 07/04/2016, Additional history exists TdaP Immunization Discontinued 04/01/2024, , 10/16/2005 Meningococcal Immunization (ACWY) Aged Out No longer eligible based on patient's age to complete this topic Rotavirus Immunization Aged Out No lo nger eligible based on patient's age to complete this topic Additional Health Concerns Infection Onset Date Last Indicated ESBL 07/19/2020 07/19/2020 Insurance MEDICAID [place] Care Teams Discharge Specialist Relationship Specialty Start Date End Date Provider, None [place] PCP - General 04/01/24
--- NOTE | 2025-01-30 18:32 | ED.SKABFB ---
HPI - Skin/Abscess/Foreign Bdy General Chief complaint: Wound/Laceration Stated complaint: ingrown hair/boil Time Seen by Provider: 01/30/25 18:40 Source: patient and RN notes reviewed Mode of arrival: ambulatory Limitations: dementia History of Present Illness HPI narrative: 29-year-old female presents concern for a boil on her labia. She reports she thinks it happened after she used someone else's razor and got an ingrown hair. She also reports she feels like a herpes outbreak is coming on. She denies any current outbreak. She reports sweats a few days ago, otherwise denies chills, fever body aches. Denies any drainage from the area. MD complaint: other (Redness) Related Data Home Medications ?Medication ?Instructions ?Recorded ?Confirmed ?Last Taken ?Type No Home Medications 01/30/25 01/30/25 Unknown History Allergies Allergy/AdvReac Type Severity Reaction Status Date / Time No Known Allergies Allergy Verified 01/30/25 18:43 Review of Systems Review of Systems: CONSTITUTIONAL: Denies malaise, chills, sweats, or fever. EYES: Denies redness, or discharge. ENT: Denies rhinorrhea, congestion, swollen lips, swollen tongue CARDIOVASCULAR: Denies chest pain, palpitations, or edema. RESPIRATORY: Denies cough or dyspnea. GASTROINTESTINAL: Denies abdominal pain, nausea, vomiting SKIN: Reports redness, swelling, tenderness to the right labia. Denies purulent drainage, vesicles, bullae, numbness, pain beyond proportion MUSCULOSKELETAL: Denies joint pain or myalgia. NEUROLOGIC: Denies headache. All systems reviewed & are unremarkable except as noted in HPI and below [facility] Past Medical History Medical History Asthma Bipolar 1 disorder Depression Herpes genitalis Surgical History Surgical History No pertinent past surgical history Family History Family History Mother Family history non-contributory Social History Social History Smoking status: Never smoker Alcohol intake: current Alcohol use details: socially Substance use: current Substance use type: marijuana and methamphetamine Last use: shot up methamphetamine today Gender identity (if verbalized by the patient): Female Sexual Orientation (if Verbalized by the Patient): Straight or Heterosexual Spiritual care concerns: No Comments At time of signature, agree with nursing past medical, surgical, social and family history. There is no relevant family history pertinent to the presenting complaint Exam Narrative: GENERAL: Well-appearing, well-nourished, and in no acute distress. HEAD: Normocephalic, atraumatic. EYES: PERRLA, conjunctivae clear ENT: Mucous membranes moist. NECK: Supple. No lymphadenopathy CHEST: Clear to auscultation. No respiratory distress. HEART: Regular rate and rhythm. SKIN: Warm, dry. 5 x 2 cm area of induration, erythema, tenderness with central abscess palpable and fluctuant noted to the right labia. No vesicles, bullae, necrosis, ecchymosis, crepitus noted. NEURO: Alert and oriented x3. PSYCH: Normal mood and affect Course Course Emergency Course: Patient is aware of diagnosis, understands and agrees to treatment plan. Anticipatory guidance given. Patient agrees to follow-up as directed and is aware of reasons to seek care at the emergency department. Portions of this record may have been created with voice recognition software Level of Care: Express Care Visit Vital Signs Vital signs: Reviewed. Procedures Abscess I/D other: Date of Incision: 01/30/25 Time of Incision: 18:53 Side (if applicable): right Local Anesthetic: lidocaine 1% Amount of anesthesia used (mL): 4 Technique: incised with #11 blade Amount of fluid expressed (mL): 3 Irrigation: No Packing used?: none I&D Results: Pus MDM - Skin/Abscess/Foreign Bdy MDM Narrative Medical decision making narrative: I evaluated this in the express care. History is obtained from patient who is an independent historian and physical exam was performed.? Available medical records were reviewed. ? Exam findings and relevant testing show no acute concerns or changes; patient is non-toxic appearing and is in no distress. No risk factors or findings concerning for epidural abscess, diskitis, vertebral osteomyelitis, cord compression, cauda equina, vertebral fracture or bone malignancy, AAA, or pyelonephritis. Patient instructed to consider further imaging and workup through their primary care physician as an outpatient if symptoms persist. Does not appear at this time to be erythema multiforme, bullous, SJS, TEN; no evidence at this time to suggest RMSF, NSTI, endocarditis or Lyme disease; patient looks well, nontoxic and is tolerating oral intake; no neurologic signs or symptoms; no headache, photophobia or neck pain; afebrile.? Patient does not have history of of penetrating trauma, laceration, blunt trauma, recent surgery, immunosuppression, malignancy, obesity, alcoholism, corticosteroid use.? Discussed the importance of follow-up, patient agrees; question, cellulitis versus necrotizing soft tissue infection versus abscess.?? Patient is appropriate for outpatient treatment and follow-up. Critical Care Time Critical Care Time Critical Care Time: No Discharge Plan Discharge Clinical Impression: Abscess, History of herpes genitalis Patient Disposition: Home Condition: Stable Instructions: Antibiotic Form, Abscess Incision and Drainage (DC) Additional Instructions: You have had an abscess drained at [facility]. You may shower - let the soapy water clean your wound, do not scrub it. Keep your wound covered to prevent transmission of infection to other people. Follow up with your primary care physician a wound check. Go to the Emergency Department immediately if you develop any of the following symptoms: Fevers, Increased redness or swelling around where your abscess was, Increased pain, or Generalized weakness or vomiting. Please Keep the wound covered and dry. Once a day: wash the wound with soap/water, apply bacitracin or neosporin and re-cover the wound. If you have any worsening of symptoms, including severe pain/swelling/numbness/changes in sensation/weakness, redness which expands more than it is right now or any other concerns please return to the ED immediately. Patient Language: Latvian Prescriptions: New clindamycin HCl 300 mg capsule 300 mg PO Q8H 7 Days Qty: 21 0RF valacyclovir 1 gram tablet 1,000 mg PO TID 7 Days Qty: 21 0RF No Action No Home Medications Follow-up/Referrals: PHYSICIAN,PIANO TECHNICIAN [Primary Care Provider] - Time of Disposition: 19:15
[2025-01-30 18:40] VITALS: BP 127/88; PULSE 94; RESP 18; TEMP 36.6; O2SAT 100
[2025-01-30] MEDS: LIDOCAINE 1% LOCAL INJ 2 ML AMPUL 4 ML INFILTRATE (18:56)
== END 2025-01-30 19:31 | disposition home or self-care (01) ==
DX: N76.4 Abscess of vulva (principal); A60.00 Herpesviral infection of urogenital system, unspecified; J45.909 Unspecified asthma, uncomplicated
CPT/HCPCS: 56405; 87070; 87075; 87181; 87205; 99213; G0463; J2003